=== PATIENT | male | born 1955 | race Caucasian/White ===

== ENCOUNTER 2017-08-21 12:29 | Emergency (ER) | payer OTHER ==
[2017-08-21 12:32] VITALS: BP 165/83; PULSE 85; RESP 14; TEMP 98.3; O2SAT 98
--- NOTE | 2017-08-21 12:40 | PD ---
Physical Exam Time Seen by Provider: 12:39 Narrative Pt tripped and fell at work 1 week ago. Landed on Left side and "wrenched" Left knee. Has been icing and elevating which helps, but standing all day worsens lower extremity edema. No fever or chills. Hx of neurofibromytosis, anxiety. Data Data Last Documented VS Vital Signs Date Time Temp Pulse Resp B/P (MAP) Pulse Ox O2 Delivery O2 Flow Rate FiO2 08/21/17 17:14 08/21/17 16:30 68 20 100 Room Air 08/21/17 12:32 98.3 Orders Orders Us Leg Venous Doppler (08/21/17 ) Knee, Complete (4vws) (08/21/17 ) Synovial Fl Cell Count + Diff (08/21/17 14:14) Synovial Fluid Crystals (08/21/17 14:14) Vital Signs (Adult) Q15MX2,Q30MX1 (08/21/17 15:46) Wound Care (08/21/17 15:46) ^ Dressings (08/21/17 15:46) Activity Bed Rest (08/21/17 15:46) Notify Dr: Other (08/21/17 15:46) Discharge Instructions (08/21/17 15:46) Aspiration, Knee (08/21/17 ) Us Guided Needle Placement (08/21/17 ) Crutches (08/21/17 16:40) Labs Laboratory Tests Test 08/21/17 15:30 Synovial Fluid Color RED Synovial Fluid Appearance BLOODY Synovial Fluid WBC 8740 /MM3 Synovial Fluid RBC 059073 /MM3 Synovial Fluid Neutrophils 97 % Synovial Fluid Lymphocytes 3 % Synovial Fluid Crystals POS - CALCIUM PYRO MDM Medical Record Reviewed: Yes Supervised Visit with MONICA: No Condition: Stable Yennifer Shetty Aug 21, 2017 12:40
--- NOTE | 2017-08-21 13:30 | RADRPT ---
EXAM DATE/TIME: 08/21/2017 12:59 [facility] COMPARISON: No previous studies available for comparison. INDICATIONS : Left knee pain, fell 10 days ago. MEDICAL HISTORY : None. SURGICAL HISTORY : None. ENCOUNTER: Initial ACUITY: 1 week PAIN SCORE: 5/10 LOCATION: Left knee FINDINGS: Four view examination of the left knee demonstrates no evidence of fracture or dislocation. Bony min eralization is normal. The articular surfaces are intact. Probable small suprapatellar effusion. Med ial soft tissue swelling. CONCLUSION: 1. Medial soft tissue swelling and likely small suprapatellar effusion. 2. No acute fracture or dislocation. Kirill Chester MD on August 21, 2017 at 13:27 Board Certified Radiologist. This report was verified electronically.
--- NOTE | 2017-08-21 13:51 | RADRPT ---
EXAM DATE/TIME: 08/21/2017 12:59 [facility] COMPARISON: No previous studies available for comparison. INDICATIONS : Left leg swelling and pain. MEDICAL HISTORY : Left leg swelling and pain. SURGICAL HISTORY : None. ENCOUNTER: Initial ACUITY: 1 week PAIN SCORE: 5/10 LOCATION: Left leg. TECHNIQUE: Venous ultrasound of the leg was performed from the inguinal ligament to the proximal calf. Real-rachel e, color Doppler and spectral tracing, compression and augmentation techniques were used. FINDINGS: There is normal compressibility of the deep venous system from the inguinal region to the proximal ca lf. No echogenic clot is seen in the lumen of the common femoral, femoral, popliteal, and posterior tibial veins. There is a normal response of the venous system to proximal and distal augmentation an d respiration. Sonographic findings of edema in the superficial tissues of the calf. In addition, there is a somewha t complex fluid collection in the medial aspect of the left knee measuring 12.3 x 1.7 x 8.8 cm. CONCLUSION: 1. No DVT. 2. 12.3 x 1.7 x 8.8 cm complex fluid collection in the medial aspect of the left knee. This would be amenable to percutaneous drainage if clinically warranted.. Wiley Carpenter MD on August 21, 2017 at 13:47 Board Certified Radiologist. This report was verified electronically.
--- NOTE | 2017-08-21 15:50 | PD.RAD ---
Post Procedure Progress Note Pre Procedure Diagnosis: (1) Fluid in left knee joint Post Procedure Diagnosis: (1) Traumatic hematoma of left knee Procedure Date: Aug 21, 2017 Supervising Radiologist: Wiley Carpenter Proceduralist/Assist: Eduar Harper, RT(R), Nicola Shepherd RT(R) Anesthesia: Local Plan of Activity Patient to Unit: Other (ED) Patient Condition: Good See PACS Report for procedural detail/treatment Drainage Procedure Procedure 1 Imaging Guidance: Ultrasound Procedure Type: Aspiration (Left knee complex fluid) Procedure: Placement Citizen Of [place]: 4 Fluid Removal (CCs): 18 Fluid Description: Bloody (Old, thick blood) Findings: Complex hematoma medial left knee Wiley Carpenter MD Aug 21, 2017 15:50
[2017-08-21 16:30] VITALS: BP 165/80; PULSE 68; RESP 20; O2SAT 100
--- NOTE | 2017-08-21 16:40 | PD ---
HPI Chief Complaint: Musculoskeletal Complaint Time Seen by Provider: 14:30 Travel History International Travel<30 days: No Contact w/Intl Traveler<30days: No Traveled to known affect area: No History of Present Illness HPI This is a 62-year-old male presents for evaluation of left knee and lower leg pain. He reports that 1 week ago he fell at work and twisted his left knee. He has been having increased pain and swelling in his left knee and lower leg since then. He has continued to work. Pain is an aching pain which is constant but worse when he is on his feet for long period of time. He denies any other injuries. He is not on any anticoagulants. No other complaints at this time. ON LICENSE OF [facility] Social History Alcohol Use: No Tobacco Use: No Allergies-Medications (Allergen,Severity, Reaction): Coded Allergies: No Known Allergies (Unverified , 08/21/17) Review of Systems Except as stated in HPI: all other systems reviewed are Neg Physical Exam Narrative GENERAL: Well-developed well-nourished male in no acute distress SKIN: Warm and dry. HEAD: Atraumatic. Normocephalic. EYES: Pupils equal and round. No scleral icterus. No injection or drainage. ENT: No nasal bleeding or discharge. Mucous membranes pink and moist. NECK: Trachea midline. No JVD. CARDIOVASCULAR: Regular rate and rhythm. No murmur appreciated. RESPIRATORY: No accessory muscle use. Clear to auscultation. Breath sounds equal bilaterally. GASTROINTESTINAL: Abdomen soft, non-tender, nondistended. Hepatic and splenic margins not palpable. MUSCULOSKELETAL: Left knee effusion and hemarthrosis is present. There is some ecchymosis and edema to the left calf and pretibial region as well. The compartments of the left leg are soft with no evidence of compartment syndrome. There is some pain with left knee flexion and extension. Somewhat limited range of motion. No erythema or induration of the skin. NEUROLOGICAL: Awake and alert. No obvious cranial nerve deficits. Motor grossly within normal limits. Normal speech. Data Data Last Documented VS Vital Signs Date Time Temp Pulse Resp B/P (MAP) Pulse Ox O2 Delivery O2 Flow Rate FiO2 08/21/17 12:32 98.3 85 14 165/83 (110) 98 Orders Orders Us Leg Venous Doppler (08/21/17 ) Knee, Complete (4vws) (08/21/17 ) Synovial Fl Cell Count + Diff (08/21/17 14:14) Synovial Fluid Crystals (08/21/17 14:14) Synovial Fluid Glucose (08/21/17 14:14) Synovial Fluid Total Protein (08/21/17 14:14) Vital Signs (Adult) Q15MX2,Q30MX1 (08/21/17 15:46) Wound Care (08/21/17 15:46) ^ Dressings (08/21/17 15:46) Activity Bed Rest (08/21/17 15:46) Notify Dr: Other (08/21/17 15:46) Discharge Instructions (08/21/17 15:46) Diet Regular Basic (08/21/17 Dinner) Aspiration, Knee (08/21/17 ) Us Guided Needle Placement (08/21/17 ) Crutches (08/21/17 16:40) MDM Medical Decision Making Medical Screen Exam Complete: Yes Emergency Medical Condition: Yes Medical Record Reviewed: Yes Differential Diagnosis Ligamentous disruption, meniscal disruption, hemarthrosis, joint effusion, septic arthritis, compartment syndrome, tibial plateau fracture, DVT Narrative Course Prior to my examination a left knee x-ray and ultrasound of the left leg were ordered in triage. Imaging revealed no acute fracture or DVT but there was a complex fluid collection in the medial aspect of left knee. The radiologist Dr. Carpenter communicated with Yennifer MCMULLEN in triage and reportedly recommended aspiration of the area under ultrasound guidance in the interventional radiology suite. Please see the procedural note from Dr. Carpenter. Clinically I don't suspect a septic arthritis or bursitis. Findings were consistent with a complex hematoma. The patient is being discharged with crutches, recommended outpatient follow-up with primary care physician for MRI of the knee. Diagnosis Primary Impression: Traumatic hematoma of left knee Qualified Codes: S80.02XA - Contusion of left knee, initial encounter Additional Impression: Hemarthrosis, left knee Referrals: Primary Care Physician Additional Instructions: Follow-up with primary care physician for outpatient MRI of left knee. Ice several times a day 20 minutes at a time. Crutches and elevation. Tylenol and Motrin for pain. Return for any emergent medical conditions. Med/Other Pt SpecificInfo: No Change to Meds, Orthopedic Instructions Disposition: 01 DISCHARGE HOME Condition: Stable Elieser Thomas Aug 21, 2017 16:40
[2017-08-21 21:12] LABS: SYNOVIAL FLUID CRYSTALS POS - CALCIUM PYRO
[2017-08-21 21:14] LABS: WBC, SYNOVIAL FLUID 8740 /MM3 (0-200)
--- NOTE | 2017-08-22 14:33 | RADRPT ---
EXAM DATE/TIME: 08/21/2017 00:00 [facility] COMPARISON: No previous studies available for comparison. INDICATIONS : Patient presents with left knee pain in need of aspiration of fluid for culture. MEDICAL HISTORY : n/a SURGICAL HISTORY : n/a ENCOUNTER: Initial ACUITY: 1 week PAIN SCORE: 0/10 LOCATION: N/A FLUORO TIME: IMAGE SERIES: 0 DEVICE(S): 21 gauge needle was placed into the medial soft tissues of the left knee RESPONSE: Pre procedure pain level was 0/10 FLUID: Total volume of 18 cc of cloudy red fluid was removed. Fluid specimen was submitted to the lab for evaluation. TECH NOTE: TOBY VILLAESNOR MR#:[id number] :56 Exam Dt/Desc: August 21, 2017ASPIRATION, KNEE, LEFT PROCEDURE : 1. Fluoroscopically guided left knee aspiration. The risks, benefits and alternatives to the procedure were explained and verbal and written consent w as obtained. The site was prepped in sterile fashion. Full sterile technique was used, including ca p, mask, sterile gloves and gown and a large sterile sheet. Hand hygiene and 2% chlorhexidine and/or betadine/alcohol prep was utilized per protocol for cutaneous antisepsis. The skin and subcutaneous tissues were infiltrated with local anesthetic solution. Ultrasound evaluation shows a large, complex hypoechoic collection in the medial aspect of the left k nee as seen on prior ultrasound. Again using ultrasound guidance, 21-gauge micropuncture needle was a dvanced into the most cephalad extent of the collection. 018 wire was advanced through the needle ove r which the flexible 3-4 dilator was placed. Through the outer 4 [place] dilator, approximately 5 cc o f thick bloody fluid was removed. 5 cc of saline was then infused into the collection and an addition al 13 cc aspirated for a total of 18 cc. The patient tolerated the procedure well and there were no complications. CONCLUSION: 1. Uncomplicated aspiration as above. 2. Collection appears to represent a mature hematoma in the regional soft tissues. Because of the con sistency of the collection, only minimal fluid was aspirated. Wiley Carpenter MD on August 22, 2017 at 14:27 Board Certified Radiologist. This report was verified electronically.
== END 2017-08-21 17:16 | disposition home or self-care (01) ==
LOC: NETRI 12:29
DX: S80.02XA Contusion of left knee, initial encounter (principal); M25.062 Hemarthrosis, left knee; Q85.00 Neurofibromatosis, unspecified; F41.9 Anxiety disorder, unspecified; W01.0XXA Fall on same level from slipping, tripping and stumbling without subsequent striking against object, initial encounter; Y99.0 Civilian activity done for income or pay
CPT/HCPCS: 73564; 89051; 89060; 93971; 99285; E0113